=== PATIENT | female | born 1955 | race Caucasian/White ===

== ENCOUNTER → 2016-06-25 | Outpatient (CLI) | payer OTHER ==
[~2016-06-25] MED LIST: BACTRIM,SEPT1 TABLET PO
== END | disposition home or self-care (01) ==
LOC: CDC 14:54
DX: Z01.810 Encounter for preprocedural cardiovascular examination (principal); C67.9 Malignant neoplasm of bladder, unspecified
CPT/HCPCS: 93000

== ENCOUNTER 2016-07-13 17:56 | Inpatient (IN) | payer OTHER ==
[~2016-07-13] VITALS: Ht 152.4 cm; Wt 47.6 kg
[2016-07-13 18:20] LABS: BASOPHIL COUNT 0.1 K/uL (0-0.1); EOSINOPHIL (%) 0.3 % (0-5); HEMATOCRIT 38.3 % (36.0-46.0); IMMATURE GRANULOCYTE (%) 1.1 % (0.0-0.7); IMMATURE GRANULOCYTE COUNT 0.1 K/uL; INSTRUMENT ABS NEUTROPHIL CT 10.3 K/uL; LYMPHOCYTE COUNT 0.9 K/uL (1.0-2.8); MCH 31.4 PG (29.0-34.0); MCHC 34.7 G/DL (30.0-36.0); MCV 90.3 FL (83-99); MEAN PLAT.VOLUME 9.7 uM^3 (9.5-12.4); MONOCYTE (%) 7.1 % (3-12); MONOCYTE COUNT 0.9 K/uL (0-0.8); NEUTROPHIL (%) 83.5 % (45-76); NEUTROPHIL COUNT 10.3 K/uL (1.8-6.4); PLATELET COUNT 319 K/uL (156-360); RBC DIS.WIDTH-CV 12.7 % (11.8-14.6); RBC DIS.WIDTH-SD 42.1 % (39-53); RED BLOOD COUNT 4.24 M/uL (3.80-5.20); WHITE BLOOD COUNT 12.3 K/uL (4.1-10.2)
[2016-07-13 18:28] LABS: CHLORIDE 108 mEq/L (99-109); POTASSIUM 3.6 mEq/L (3.7-5.4); SODIUM 137 mEq/L (136-147)
[2016-07-13 18:29] LABS: GLUCOSE 99 mg/dL (70-99)
[2016-07-13 18:31] LABS: ANION GAP 12 MEQ/L (2-14)
[2016-07-13 18:33] LABS: GFR ESTIMATE (CALCULATED) > 59 mL/min/
[2016-07-13 18:34] LABS: UREA NITROGEN (BUN) 22 mg/dL (9-23)
[2016-07-13 20:08] LABS: ADD MIUA? YES; BILIRUBIN NEGATIVE; BLOOD LARGE; COLOR YELLOW ((YELLOW)); GLUCOSE (STRIP) NEGATIVE; KETONES 80; LEUKOCYTES LARGE; NITRITE NEGATIVE; PROTEIN (STRIP) 100; SPECIFIC GRAVITY 1.024 (1.000-1.030); UROBILINOGEN 0.2 MG/DL (0.2-1.0)
[2016-07-13 20:32] LABS: RED BLOOD CELLS 30-40 /HPF (0-5)
[2016-07-13 20:33] LABS: BACTERIA RARE /HPF; EPITHELIAL CELLS 1+ /HPF; MUCUS 1+ /LPF; UCUL ADDED? NO; WHITE BLOOD CELLS 40-50 /HPF (0-5)
[2016-07-13] MEDS ORDERED: CO Q-10100 MG PO (22:02)
[2016-07-13] MEDS ORDERED: LEXAPRO10 MG PO (22:02)
[2016-07-13] MEDS ORDERED: VITAMIN C1000 MG PO (22:02)
[2016-07-13] MEDS ORDERED: ALEVE220 M2 PO (22:02)
[2016-07-14 01:52] VITALS: BP 119/64
[2016-07-14 04:11] VITALS: BP 105/55
[2016-07-14 08:48] VITALS: BP 104/55
[2016-07-14 11:59] VITALS: BP 101/57
[2016-07-14 15:55] VITALS: BP 115/64
[2016-07-14 19:18] VITALS: BP 103/52
[2016-07-15] VITALS: BP 110/56
[2016-07-15 04:10] VITALS: BP 104/54
[2016-07-15 06:14] LABS: ANION GAP 7 MEQ/L (2-14); CHLORIDE 113 MEQ/L (99-109); GFR ESTIMATE (CALCULATED) > 59 mL/min/; GLUCOSE 104 mg/dL (70-99); POTASSIUM 3.2 MEQ/L (3.7-5.4); SAMPLE HEMOLYSIS CHECK 0; SAMPLE ICTERIC CHECK 0; SAMPLE LIPEMIA CHECK 0; SODIUM 141 MEQ/L (136-147); UREA NITROGEN (BUN) 13 mg/dL (9-23)
[2016-07-15 06:24] LABS: EOSINOPHIL (%) 0.1 % (0-5); HEMATOCRIT 29.6 % (36.0-46.0); IMMATURE GRANULOCYTE (%) 1.9 % (0.0-0.7); IMMATURE GRANULOCYTE COUNT 0.2 K/uL; INSTRUMENT ABS NEUTROPHIL CT 8.7 K/uL; LYMPHOCYTE COUNT 1.2 K/uL (1.0-2.8); MCHC 32.8 G/DL (30.0-36.0); MEAN PLAT.VOLUME 10.3 uM^3 (9.5-12.4); MONOCYTE (%) 8.1 % (3-12); MONOCYTE COUNT 0.9 K/uL (0-0.8); NEUTROPHIL (%) 78.9 % (45-76); NEUTROPHIL COUNT 8.7 K/uL (1.8-6.4); PLATELET COUNT 224 K/uL (156-360); RBC DIS.WIDTH-CV 13.4 % (11.8-14.6); RBC DIS.WIDTH-SD 46.9 % (39-53)
[2016-07-15 06:40] LABS: MCV 94.6 FL (83-99); RED BLOOD COUNT 3.13 M/uL (3.80-5.20)
[2016-07-15 08:30] VITALS: BP 93/50
[2016-07-15 11:29] VITALS: BP 90/52
[2016-07-15 16:12] VITALS: BP 98/55
[2016-07-15 19:43] VITALS: BP 121/75
[2016-07-16 00:14] VITALS: BP 114/64
[2016-07-16 03:40] VITALS: BP 114/56
[2016-07-16 04:11] VITALS: BP 110/57
[2016-07-16 06:00] LABS: HEMATOCRIT 33.7 % (36.0-46.0); MCH 30.3 PG (29.0-34.0); MCHC 31.8 G/DL (30.0-36.0); MCV 95.5 FL (83-99); MEAN PLAT.VOLUME 10.7 uM^3 (9.5-12.4); PLATELET COUNT 236 K/uL (156-360); RBC DIS.WIDTH-CV 13.5 % (11.8-14.6); RBC DIS.WIDTH-SD 47.5 % (39-53); RED BLOOD COUNT 3.53 M/uL (3.80-5.20)
[2016-07-16 06:26] LABS: ANION GAP 8 MEQ/L (2-14); CHLORIDE 112 MEQ/L (99-109); GFR ESTIMATE (CALCULATED) > 59 mL/min/; GLUCOSE 90 mg/dL (70-99); IRON 18 MCG/DL (35-150); POTASSIUM 3.7 MEQ/L (3.7-5.4); SAMPLE HEMOLYSIS CHECK 0; SAMPLE ICTERIC CHECK 0; SAMPLE LIPEMIA CHECK 0; SODIUM 141 MEQ/L (136-147); UREA NITROGEN (BUN) 10 mg/dL (9-23)
[2016-07-16 07:42] LABS: FERRITIN 146 NG/ML (10-291)
[2016-07-16 09:15] VITALS: BP 141/63
[2016-07-16 11:30] VITALS: BP 124/59
[2016-07-16 21:00] VITALS: BP 150/72
[2016-07-17 04:00] VITALS: BP 129/74
[2016-07-17 07:48] LABS: HEMATOCRIT 29.9 % (36.0-46.0); MCH 31.4 PG (29.0-34.0); MCHC 33.4 G/DL (30.0-36.0); MEAN PLAT.VOLUME 10.7 uM^3 (9.5-12.4); PLATELET COUNT 254 K/uL (156-360); RBC DIS.WIDTH-CV 13.1 % (11.8-14.6); RBC DIS.WIDTH-SD 45.5 % (39-53); RED BLOOD COUNT 3.18 M/uL (3.80-5.20); WHITE BLOOD COUNT 9.4 K/uL (4.1-10.2)
[2016-07-17 08:13] LABS: ANION GAP 7 MEQ/L (2-14); CHLORIDE 110 MEQ/L (99-109); GFR ESTIMATE (CALCULATED) > 59 mL/min/; GLUCOSE 87 mg/dL (70-99); POTASSIUM 3.3 MEQ/L (3.7-5.4); SAMPLE HEMOLYSIS CHECK 0; SAMPLE ICTERIC CHECK 0; SAMPLE LIPEMIA CHECK 0; SODIUM 142 MEQ/L (136-147); UREA NITROGEN (BUN) 10 mg/dL (9-23)
[2016-07-17 08:28] VITALS: BP 116/57
[2016-07-17] MEDS ORDERED: CIPROFLOXACIN500 M1 PO (10:44)
== END 2016-07-17 13:00 | disposition home or self-care (01) | DRG 690 ==
LOC: EME 17:56 → EDOF 07-14 00:19 → 5WEST 07-14 01:44
PROVIDERS: Hospitalist; Physician Assistant Medical
DX: N10 Acute pyelonephritis (principal); D50.9 Iron deficiency anemia, unspecified; N32.9 Bladder disorder, unspecified
CPT/HCPCS: 74177; 80048; 81003; 82272; 82607; 82728; 82746; 83540; 83605; 84466; 85025; 85027; 87040; 87077; 87086; 87186; 99281; 99285; J0692; J1644; J2405; J7030; J7040; J7042; J7050; J7120

== ENCOUNTER 2017-05-13 13:59 | Emergency (ER) | payer OTHER ==
[~2017-05-13] VITALS: Ht 152.4 cm; Wt 47.2 kg
[~2017-05-13 13:59] MED LIST changes: +ALEVE220 M2 PO; +CIPROFLOXACIN500 M1 PO; +CO Q-10100 MG PO; +LEXAPRO10 MG PO; +VITAMIN C1000 MG PO
[2017-05-13] MEDS ORDERED: MECLIZINE HCL25 MG PO (19:14)
[2017-05-13] MEDS ORDERED: ZOFRAN ODT4 MG PO (19:14)
[2017-05-13 19:36] VITALS: BP 146/84
== END 2017-05-13 19:39 | disposition home or self-care (01) ==
LOC: EME 13:59
DX: R42 Dizziness and giddiness (principal); R11.2 Nausea with vomiting, unspecified; R19.7 Diarrhea, unspecified; F32.9 Major depressive disorder, single episode, unspecified; Z85.51 Personal history of malignant neoplasm of bladder; Z88.2 Allergy status to sulfonamides
CPT/HCPCS: 93005; 99281; 99284; J2405; J7030

== ENCOUNTER → 2017-10-14 | Outpatient (CLI) | payer OTHER ==
[~2017-10-14] MED LIST changes: +MECLIZINE HCL25 MG PO; +ZOFRAN ODT4 MG PO
== END | disposition home or self-care (01) ==
LOC: CDC 11:07
DX: Z01.810 Encounter for preprocedural cardiovascular examination (principal); C67.3 Malignant neoplasm of anterior wall of bladder
CPT/HCPCS: 93000